=== PATIENT | female | born 1975 | race Caucasian/White ===

== ENCOUNTER 2018-06-28 12:11 | Emergency (ER) | payer OTHER ==
[2018-06-28] MEDS ORDERED: NORMAL SALINE 1000 ML 1,000 ML IV ONE (12:41)
--- NOTE | 2018-06-28 12:44 | ER Document Report ---
ED Medical Screen (RME) - General Chief Complaint: Shortness Of Breath Stated Complaint: COUGH Time Seen by Provider: 06/28/18 12:32 Mode of Arrival: Ambulatory Information source: Patient TRAVEL OUTSIDE OF THE [place] IN LAST 30 DAYS: No - HPI Patient complains to provider of: SOB, COUGH Notes: 06/28/18 12:42 Patient arrives via EMS with complaints of cough and shortness of breath. Patient states she has been coughing for about 2 weeks now seems to be getting worse. She was at urgent care which was noted to have a heart rate of 140 and was wheezy. She was given breathing treatments and states that she does feel like her breathing has improved. EMS was called due to her tachycardia and shortness of breath. Apparently there x-ray machine was down at the office. Patient states she had some fever the onset of her illness, no fever since. She had vomiting a few days ago, no vomiting today. She states that she is here on vacation, traveling over 200 miles. She is on control. She is a non- smoker. She denies any leg pain or swelling, cancer, history of DVT or PE. Exam No distress, nontoxic-appearing. Hoarse voice. Lungs clear and equal throughout. Slight tachycardia. Plan CBC, CMP, troponin, EKG, chest x-ray, saline lock, fluid bolus. Due to the fact of the patient's recent travel, control, tachycardia, I have ordered a d- dimer. An initial examination was made on the patient as part of the triage process, and it was determined a more comprehensive evaluation was necessary. Initial labs were ordered and patient was transferred to another provider in the ED who assumed care and finished evaluation and plan. - Related Data Allergies/Adverse Reactions: gatifloxacin [From Tequin] Allergy (Verified 06/28/18 12:13) latex Allergy (Verified 06/28/18 12:13) levofloxacin [From Levaquin] Allergy (Verified 06/28/18 12:13) Past Medical History - Past Medical History Cardiac Medical History: Reports: Hx Hypertension Renal/ Medical History: Denies: Hx Peritoneal Dialysis Psychiatric Medical History: Reports: Hx Depression Past Surgical History: Reports: Hx Tonsillectomy Physical Exam - Vital signs Vitals: Temp Pulse Resp BP Pulse Ox 98.4 F 114 H 20 122/95 H 96 06/28/18 12:23 06/28/18 12:23 06/28/18 12:23 06/28/18 12:23 06/28/18 12:23 Course - Vital Signs Vital signs: Temp Pulse Resp BP Pulse Ox 98.4 F 114 H 20 122/95 H 96 06/28/18 12:23 06/28/18 12:23 06/28/18 12:23 06/28/18 12:23 06/28/18 12:23
--- NOTE | 2018-06-28 13:05 | RADIOLOGY REPORT (SQ) ---
EXAM DESCRIPTION: CHEST 2 VIEWS COMPLETED DATE/TIME: 06/28/2018 12:56 pm REASON FOR STUDY: COUGH COMPARISON: None. EXAM PARAMETERS: NUMBER OF VIEWS: two views TECHNIQUE: Digital Frontal and Lateral radiographic views of the chest acquired. RADIATION DOSE: NA LIMITATIONS: none FINDINGS: LUNGS AND PLEURA: No opacities, masses or pneumothorax. No pleural effusion. MEDIASTINUM AND HILAR STRUCTURES: No masses or contour abnormalities. HEART AND VASCULAR STRUCTURES: Cardiomegaly. BONES: No acute findings. HARDWARE: None in the chest. OTHER: No other significant finding. IMPRESSION: Cardiomegaly without acute abnormality of the lungs. No focal airspace opacity. TECHNICAL DOCUMENTATION: JOB ID: [id number] [employer]- All Rights Reserved Reading location - IP/workstation name: [email or web address]
[2018-06-28 13:31] LABS: ABSOLUTE BASOPHILS # (AUTO) 0.1 10^3/uL (0.0-0.2); ABSOLUTE EOSINOPHILS # (AUTO) 0.2 10^3/uL (0.0-0.6); ABSOLUTE LYMPHOCYTES (AUTO) 1.8 10^3/uL (0.5-4.7); ABSOLUTE MONOCYTES (AUTO) 1.1 10^3/uL (0.1-1.4); ABSOLUTE NEUT (AUTO) 12.1 10^3/uL (1.7-8.2); BASOPHILS % (AUTO) 0.3 % (0-2); EOSINOPHILS % (AUTO) 1.2 % (0-6); HEMATOCRIT 37.8 % (36.0-47.0); HEMOGLOBIN 12.9 g/dL (12.0-15.5); LYMPHOCYTES % (AUTO) 11.8 % (13-45); MEAN CORPUSCULAR HEMOGLOBIN 28.7 pg (27.0-33.4); MEAN CORPUSCULAR HGB CONC 34.1 g/dL (32.0-36.0); MEAN CORPUSCULAR VOLUME 84 fl (80-97); MONOCYTES % (AUTO) 7.3 % (3-13); PLATELET COUNT 348 10^3/uL (150-450); RED BLOOD COUNT 4.48 10^6/uL (3.72-5.28); RED CELL DISTRIBUTION WIDTH 13.2 % (11.5-14.0); SEGMENTED NEUTROPHILS % (AUTO) 79.4 % (42-78); TOTAL CELLS COUNTED % (AUTO) 100 %; WHITE BLOOD COUNT 15.3 10^3/uL (4.0-10.5)
[2018-06-28 13:50] LABS: ALANINE AMINOTRANSFERASE 24 U/L (9-52); ALBUMIN 3.8 g/dL (3.5-5.0); ALKALINE PHOSPHATASE 128 U/L (38-126); ANION GAP 10 (5-19); ASPARTATE AMINO TRANSFERASE 27 U/L (14-36); BILIRUBIN,DIRECT 0.3 mg/dL (0.0-0.4); BILIRUBIN,TOTAL 0.7 mg/dL (0.2-1.3); BLOOD UREA NITROGEN 7 mg/dL (7-20); CALCIUM 9.4 mg/dL (8.4-10.2); CARBON DIOXIDE 25 mmol/L (22-30); CHLORIDE 104 mmol/L (98-107); GLUCOSE 95 mg/dL (75-110); POTASSIUM 3.7 mmol/L (3.6-5.0); SODIUM 139.1 mmol/L (137-145); TOTAL PROTEIN 7.2 g/dL (6.3-8.2)
[2018-06-28] MEDS ORDERED: LIDOCAINE 1% INJ-PF (10 MG/ML) 30 ML SDV NEB ONE (14:57)
[2018-06-28] MEDS ORDERED: IPRATROPIUM/ALBUTEROL 0.5-2.5 MG/3 ML AMPUL NEB ONE (14:57)
[2018-06-28] MEDS ORDERED: METHYLPREDNISOLONE INJ 125 MG/2 ML SDV IV ONE (14:57)
--- NOTE | 2018-06-28 16:03 | ER Document Report ---
Entered by LU ISABEL SCRIBE 06/28/18 1515 Acting as scribe for:LUIS BRONW MD ED General - General Chief Complaint: Shortness Of Breath Stated Complaint: COUGH Time Seen by Provider: 06/28/18 12:32 Primary Care Provider: GLORIA SILVA [Primary Care Provider] - Follow up as needed Mode of Arrival: Ambulatory Information source: Patient Notes: Patient is a 43 year old female presenting to the emergency department complaining of a cough and shortness of breath onset 2 weeks ago. Patient states approximately 2 weeks ago she had influenza type symptoms that have not resolve or worsen. She states she recently drove here from [place], [place] to vacation and noticed her cough worsened and became productive with thick yellow/green spu александр. She also complains of wheezing and upper abdominal and chest anterior chest wall pain which she attributes to frequently coughing. She also reports loosing her voice 2 days ago. Patient states she initially visited urgent care where the ambulance was called after the patient was noted to be tachycardic and wheezing. She states she received a breathing treatment while there which somewhat helped her coughing. TRAVEL OUTSIDE OF THE [place] IN LAST 30 DAYS: No - Related Data Allergies/Adverse Reactions: gatifloxacin [From Tequin] Allergy (Verified 06/28/18 12:13) latex Allergy (Verified 06/28/18 12:13) levofloxacin [From Levaquin] Allergy (Verified 06/28/18 12:13) Past Medical History - General Information source: Patient - Social History Smoking Status: Never Smoker Family History: Reviewed & Not Pertinent Patient has suicidal ideation: No Patient has homicidal ideation: No - Past Medical History Cardiac Medical History: Reports: Hx Hypertension GI Medical History: Reports: Hx Gastroesophageal Reflux Disease Psychiatric Medical History: Reports: Hx Depression Past Surgical History: Reports: Hx Tonsillectomy Review of Systems - Review of Systems Constitutional: No symptoms reported EENT: No symptoms reported Cardiovascular: No symptoms reported Respiratory: See HPI, Cough, Short of breath Gastrointestinal: See HPI, Abdominal pain Genitourinary: No symptoms reported Female Genitourinary: No symptoms reported Musculoskeletal: No symptoms reported Skin: No symptoms reported Hematologic/Lymphatic: No symptoms reported Neurological/Psychological: No symptoms reported -: Yes All other systems reviewed and negative Physical Exam - Vital signs Vitals: Temp Pulse Resp BP Pulse Ox 98.4 F 114 H 20 122/95 H 96 06/28/18 12:23 06/28/18 12:23 06/28/18 12:23 06/28/18 12:23 06/28/18 12:23 - Notes Notes: GENERAL: Alert, voice is hoarse, interacts well. No acute distress. HEAD: Normocephalic, atraumatic. EYES: Pupils equal, round, and reactive to light. Extraocular movements intact. ENT: Oral mucosa moist, tongue midline. Nares patent, no nasal septal hematoma. Left TM retracted, right TM slightly bulging. NECK: Full range of motion. Supple. Trachea midline. LUNGS: Rhonchi, faint wheezes, bronchitic like coarse breath sounds. Anterior chest wall tender to palpation. HEART: Regular rate and rhythm. No murmurs, gallops, or rubs. ABDOMEN: Soft, upper abdomen tender to palpation. Non-distended. Bowel sounds present in all 4 quadrants. No guarding, rigidity, or rebound. EXTREMITIES: Moves all 4 extremities spontaneously. No edema, radial and dorsalis pedis pulses 2/4 bilaterally. No cyanosis. NEUROLOGICAL: Alert and oriented x3. Normal speech. PSYCH: Normal affect, normal mood. SKIN: Warm, dry, normal turgor. The patient does have some pustules and small round scars on both upper extremities. She reports that is from where her cat will scratch her and then she will pick them over and let them scarred down. Course - Vital Signs Vital signs: Temp Pulse Resp BP Pulse Ox 98.4 F 114 H 20 122/95 H 96 06/28/18 12:23 06/28/18 12:23 06/28/18 12:23 06/28/18 12:23 06/28/18 12:23 - Laboratory Result Diagrams: 06/28/18 13:10 06/28/18 13:10 Laboratory results interpreted by me: 06/28/18 06/28/18 06/28/18 13:10 13:10 13:10 WBC 15.3 H Seg Neutrophils % 79.4 H Lymphocytes % 11.8 L Absolute Neutrophils 12.1 H D-Dimer 0.66 H Alkaline Phosphatase 128 H Discharge - Discharge Clinical Impression: Bronchitis with bronchospasm, Laryngitis Leukocytosis Qualifiers: Leukocytosis type: unspecified Qualified Code(s): D72.829 - Elevated white blood cell count, unspecified Condition: Good Disposition: HOME, SELF-CARE Additional Instructions: Bronchitis with Bronchospasm (Wheezing): You have bronchitis with bronchospasm (wheezing). Sometimes people develop wheezing with a chest cold. This occurs either because of an underlying tendency toward asthma or because the virus itself irritates the bronchial tubes. This irritation causes cough, shortness of breath, and wheezing. Emergency treatment of bronchospasm may include adrenaline shots or bronchodilator aerosol. You may feel lightheaded and have a rapid pulse for an hour or two. Rest and get plenty of fluids. At home, we'll treat you with a bronchodilator inhaler. Corticosteroids may be required for some patients. Until you recover, avoid chemical fumes, dusts, pollens, and exercising in very cold or dry air. If you smoke, stop now! Most cases of bronchitis get better without antibiotics. We prescribe antibiotics when we believe bacteria are damaging your airways, or if there's high risk the bronchitis will worsen into pneumonia. Increase your fluid intake. A cool mist humidifier may make your lungs more comfortable. An expectorant (cough medicine that loosens phlegm) can help. Repeated episodes of bronchitis and bronchospasm may result in lung damage -- for example, chronic bronchitis, recurrent pneumonias, or emphysema. If you develop a fever, increased wheezing, chest pain, or severe shortness of breath, you should contact the doctor immediately. Laryngitis: You have laryngitis. This is an inflammation of the vocal cords which leads to inability to speak normally. Any irritation to the airway can cause laryngitis. Causes include virus infection, smoke inhalation, allergy, or even trauma due to excessive talking or shouting. Rest your voice. Any vibration of the vocal cords increases and prolongs the swelling. Humidity is helpful, especially cool mist. Avoid dust, chemical fumes, and smoke. Avoid decongestants and antihistamines -- these will make you worse. You can expect to recover completely in a few days. See the physician if new symptoms develop, such as high fever, productive cough, shortness of breath, or if you do not improve within a few days. Take medications as prescribed. Use the inhaler for wheezing as needed. Start the prednisone tomorrow. Start the azithromycin tomorrow. You may also add Robitussin-DM or Delsym DM to help control your cough. Drink plenty of fluids throughout the day and the evenings. Get plenty of rest, and rest your voice is much as possible. Follow-up with a local medical doctor or your primary care provider if not improving. RETURN TO THE EMERGENCY ROOM IF ANY NEW OR WORSENING SYMPTOMS. Prescriptions: Albuterol Sulfate [Proair Hfa Inhalation Aerosol 8.5 gm Mdi] 2 puff IH ASDIR PRN #1 mdi PRN Reason: Azithromycin [Zithromax 250 mg Tablet] 250 mg PO DAILY #4 tablet Benzonatate [Tessalon Perles 100 mg Capsule] 100 mg PO ASDIR PRN #30 capsule PRN Reason: RX: Prednisone [Deltasone 10 mg Tablet] 10 mg PO ASDIR PRN #21 tablet PRN Reason: Referrals: LOCALMD,NO [Primary Care Provider] - Follow up as needed Scribe Attestation: 06/28/18 16:14 I personally performed the services described in the documentation, reviewed and edited the documentation which was dictated to the scribe in my presence, and it accurately records my words and actions. I personally performed the services described in the documentation, reviewed and edited the documentation which was dictated to the scribe in my presence, and it accurately records my words and actions.
[2018-06-28] MEDS ORDERED: PREDNISONE 20 MG TABLET PO ONE (16:14)
[2018-06-28] MEDS ORDERED: BENZONATATE 100 MG CAPSULE PO ONE (16:14)
[2018-06-28] MEDS ORDERED: AZITHROMYCIN 250 MG TABLET PO ONE (16:14)
[2018-06-28] MEDS ORDERED: HYDROCODONE/ACETAMINOPHEN 5-325 MG TABLET PO ONE (16:22)
[2018-06-28 17:09] VITALS: BP 130/84
--- NOTE | 2018-06-28 17:17 | EKG REPORT ---
SEVERITY:- BORDERLINE ECG - SINUS TACHYCARDIA LVH BY VOLTAGE DIFFUSE NONSPECIFIC ST-T CHANGES : Confirmed by: Noel Love MD 28-Jun-2018 17:17:10
== END 2018-06-28 17:20 | disposition home or self-care (01) ==
LOC: ER 12:11
DX: J40 Bronchitis, not specified as acute or chronic (principal); J98.01 Acute bronchospasm; J04.0 Acute laryngitis; D72.829 Elevated white blood cell count, unspecified; R06.02 Shortness of breath; R05 Cough; R06.2 Wheezing; R10.10 Upper abdominal pain, unspecified; R07.89 Other chest pain; L08.9 Local infection of the skin and subcutaneous tissue, unspecified; I10 Essential (primary) hypertension; Z91.040 Latex allergy status; Z88.1 Allergy status to other antibiotic agents
CPT/HCPCS: 93005; 94640 ×2; 99285; 96361; 96374; 36415; 83735; 84443; 85025; 80053; 84484; 85379; 71046; 93010; J3490; J2930; J7512; J7030; J7620